=== PATIENT | male | born 1965 | race Two or more races ===

== ENCOUNTER 2025-01-08 21:30 | Inpatient (IN) | payer MEDICAID, OTHER ==
[~2025-01-08] VITALS: Ht 172.7 cm; Wt 61.7 kg
--- NOTE | 2025-01-08 21:58 | ED.PDOC ---
Altered Mental Status HPI Comments 61-year-old male who came to ER via EMS for overdose/altered level of consciousness. Per EMS, patient was seen lying unresponsive beside a dumpster. Noted pinpoint pupils, shallow breathing. Patient was given a total of 8 mg of Narcan (6 mg intranasal, 2mg IV) which finally woke up the patient. Patient is still acting confused and disoriented at this time. Reports of nausea and vomiting. Patient appears homeless. Chief Complaint: Overdose Time Seen by MD: 21:55 Reviewed Notes: [employer] Teacher Notes Allergies: Coded Allergies: UNOBTAINABLE (Unverified , 01/08/25) Information Source: Emergency Med Personnel Mode of Arrival: EMS Severity: Unable to Care for Self Timing: Minutes Duration: Since onset Prehospital treatment: None Quality: Decreased Alertness, Change in Behavior, Confusion Recent: Medication/Drug Abuse Review of Systems REVIEW OF SYSTEMS: (+) Altered level of consciousness No fever, no chills, or fatigue HEENT: No sore throat, no earache, no congestion, no neck pain. Cardiac: No chest pain. No palpitations. Lungs: No shortness of breath, no cough. GI: No nausea, no vomiting, no diarrhea, no constipation, no abdominal pain : No dysuria, frequency, or urgency. No hematuria. Musculoskeletal: No joint pain , no joint swelling, no extremity edema. Skin: No rash, no itching. Neuro: No headache, no dizziness, no weakness Vital Signs Vital Signs Date Time Temp Pulse Resp B/P (MAP) Pulse Ox O2 Delivery O2 Flow Rate FiO2 01/08/25 21:30 98.3 120 22 135/88 (104) 94 98.3 Physical Exam General: Awake, alert and oriented. No acute distress. Skin: Skin in warm, dry and intact without rashes or lesions. HEENT: The head is normocephalic and atraumatic. Conjunctivae are clear without exudates or hemorrhage. Sclera is non-icteric. Vomitus material around mouth Neck: Normal range of motion. No JVD. Cardiac: Regular rate Respiratory: No signs of respiratory distress. No Stridor. Extremities: Upper and lower extremities are atraumatic in appearance without deformity. Neurological: The patient is awake, alert and oriented to person, Speech is slurred . There is no facial asymmetry. Past Medical History PAST MEDICAL HISTORY: Pt Confused Surgical History: Pt Confused Family History Family History: Pt Confused Social History Smoker: Pt Confused Alcohol: Pt Confused Drugs: Pt Confused Lives In: Pt Confused EKG EKG : Comments Sinus rhythm at a rate of 108. No STEMI. Was a procedure done? Was a procedure done?: No Differential Diagnosis (ALOC) Differential Diagnosis: Dehydration, Hypoglycemia, Encephalopathy, Hypoxemia, Drug Overdose, ETOH Intoxication, Heart Failure (Aspiration, other), Other X-Ray, Labs, Meds, VS Vital Signs Date Time Temp Pulse Resp B/P (MAP) Pulse Ox O2 Delivery O2 Flow Rate FiO2 01/08/25 21:30 98.3 120 22 135/88 (104) 94 98.3 Lab Test 01/08/25 22:02 Range/Units White Blood Count 6.6 4.4-10.8 10^3/uL Red Blood Count 4.52 4.5-5.90 10^6/uL Hemoglobin 14.2 13.5-17.5 g/dL Hematocrit 42.0 41.0-53.0 % Mean Corpuscular Volume 92.9 80.0-100.0 fL Mean Corpuscular Hemoglobin 31.5 28.0-32.0 pg Mean Corpuscular Hemoglobin Concent 33.9 32.0-36.0 g/dL Red Cell Distribution Width 15.4 H 11.8-14.3 % Platelet Count 332 140-450 10^3/uL Mean Platelet Volume 9.2 6.9-10.8 fL Neutrophils (%) (Auto) 60.4 37.0-80.0 % Lymphocytes (%) (Auto) 30.4 10.0-50.0 % Monocytes (%) (Auto) 7.2 0.0-12.0 % Eosinophils (%) (Auto) 1.5 0.0-7.0 % Basophils (%) (Auto) 0.5 0.0-2.0 % Neutrophils # (Auto) 4.0 1.6-8.6 10 ^3/uL Lymphocytes # (Auto) 2.0 0.4-5.4 10 ^3/uL Monocytes # (Auto) 0.5 0-1.3 10 ^3/uL Eosinophils # (Auto) 0.1 0-0.8 10 ^3/uL Basophils # (Auto) 0 0-0.2 10 ^3/uL Nucleated Red Blood Cells 0.1 % Sodium Level 144 136-145 mmol/L Potassium Level 2.2 *L 3.5-5.1 mmol/L Chloride Level 106 98-107 mmol/L Carbon Dioxide Level 22 20-31 mmol/L Anion Gap 16 H 5-15 Blood Urea Nitrogen 12 9-23 mg/dL Creatinine 1.04 0.700-1.30 mg/dL Glomerular Filtration Rate Calc 83 >90 mL/min BUN/Creatinine Ratio 11.5 10.0-20.0 Serum Glucose 125 H 74-106 mg/dL Calcium Level 9.8 8.7-10.4 mg/dL Troponin I High Sensitivity 5 </=54 ng/L Images Reviewed?: Images reviewed and evaluated by me (Independent interpretation of chest x-ray: No acute disease) Time of 1ST Reevaluation: 21:51 Reevaluation 1ST: Unchanged Patient Education/Counseling: Need For Follow Up Family Education/Counseling: Need For Follow Up Departure 1 Departure Time of Disposition: 01:25 Impression: Primary Impression: Drug overdose Additional Impression: Hypokalemia Disposition: ADMITTED INPATIENT Condition: Stable Comments Extensive evaluation was performed in attempt to identify or rule out: (See differential diagnosis section) The following tests were ordered, and results were reviewed by me and discussed with patient: (See diagnostic results section) The following test were independently interpreted by me: EKG, chest x-ray I reviewed and agreed with the following test results read by other providers: Chest x-ray I reviewed the following notes from the pt's past medical encounters: N/A Additional information was gathered from interviewing the following independent historians: EMS personnel Discussion of management or test interpretation with external physician/other qualified health child care attendant: N/A Addressed an acute or chronic illness that poses a threat to life or bodily function: Hypokalemia, opiate overdose Decision regarding hospitalization or escalation of hospital level of care: Risk and benefits of admission for further treatment of patient's condition was considered. Due to patient's current clinical condition, high risk of decline and poor outcome if discharged and need for further inpatient management and monitoring, patient will be admitted to the hospital. Discussed with patient. Drug therapy requiring intensive monitoring for toxicity: IV potassium Parenteral controlled substances: N/A Decision regarding elective major surgery with identified patient or procedure risk factors: N/A Decision regarding emergency major surgery: N/A Decision not to resuscitate or to de-escalate care because of poor prognosis: N/A Diagnosis or treatment significantly limited by social determinants of health: N/A Critical Care Note Critical Care Time?: No Stability Stability form required: No Heart Score Heart Score: Heart Score Response (Comments) Value History N/A 0 EKG N/A 0 Age N/A 0 Risk Factors N/A 0 Troponin N/A 0 Total 0 I personally scribed for SLIME BEDOYA MD ([email or web address]) on 01/08/25 at 21:58. Electronically submitted by Kelvin Rodríguez ([facility]). SLIME BEDOYA MD January 08, 2025 21:58
[2025-01-08 22:18] LABS: Basophils # (auto) 0 10 ^3/uL (0-0.2); Basophils % (auto) 0.5 % (0.0-2.0); Eosinophils # (auto) 0.1 10 ^3/uL (0-0.8); Eosinophils % (auto) 1.5 % (0.0-7.0); Hemoglobin 14.2 g/dL (13.5-17.5); Lymphocytes % (auto) 30.4 % (10.0-50.0); Mean Corpuscular Hemoglobin 31.5 pg (28.0-32.0); Mean Corpuscular Hgb Conc. 33.9 g/dL (32.0-36.0); Mean Corpuscular Volume 92.9 fL (80.0-100.0); Monocytes # (auto) 0.5 10 ^3/uL (0-1.3); Monocytes % (auto) 7.2 % (0.0-12.0); Neutrophils % (auto) 60.4 % (37.0-80.0); Nucleated Red Blood Cells % 0.1 %; Platelet Count (auto) 332 10^3/uL (140-450); Red Blood Cells 4.52 10^6/uL (4.5-5.90); Red Cell Distribution Width 15.4 % (11.8-14.3); White Blood Cell 6.6 10^3/uL (4.4-10.8)
[2025-01-08 22:36] LABS: Chloride 106 mmol/L (98-107); Sodium 144 mmol/L (136-145)
[2025-01-08 22:37] LABS: Anion Gap 16 (5-15); Carbon Dioxide 22 mmol/L (20-31)
[2025-01-08 22:38] LABS: Calcium 9.8 mg/dL (8.7-10.4)
[2025-01-08 22:42] LABS: BUN/Creatinine Ratio 11.5 (10.0-20.0); Blood Urea Nitrogen 12 mg/dL (9-23)
[2025-01-08 23:10] LABS: Glucose 125 mg/dL (74-106)
[2025-01-08 23:11] LABS: Potassium 2.2 mmol/L (3.5-5.1)
--- NOTE | 2025-01-08 23:13 | DVH ---
CHEST RADIOGRAPH Indication: Overdose Technique: Single frontal view of the chest was obtained COMPARISON: None FINDINGS: Lines and Tubes: None Lungs: Clear Pleura: No effusion. No pneumothorax. Cardiomediastinal contours: Unremarkable IMPRESSION: No abnormality demonstrated.
[2025-01-09] VITALS (8 sets, daily range): BP systolic 143–152; BP diastolic 95–100; PULSE 85–97; RESP 13–20; TEMP 97.5–98; O2SAT 92–100
[2025-01-09] MEDS: PANTOPRAZOLE 40 MG/10 ML VIAL INJ IV ONE (01:19)
[2025-01-09] MEDS: METOCLOPRAMIDE HCL 5MG/ml INJ 2ml VIAL IV ONE (01:19)
[2025-01-09] MEDS: SODIUM CHLORIDE 0.9% 1,000 ML IV ONE (01:20)
[2025-01-09] MEDS: POTASSIUM CHL 20MEQ/50ML 50 ML IV SCH (01:20)
[2025-01-09] MEDS ORDERED: KETOROLAC TROMETH 30 MG/ML 1ML VIAL IV PRN (01:30)
[2025-01-09] MEDS ORDERED: ACETAMINOPHEN 325 MG TAB PO PRN (01:30)
[2025-01-09] MEDS: THIAMINE 100mg/ml INJ (200mg/2ml VIAL) IV ONE (02:19)
[2025-01-09] MEDS: D5W/SOD CHL 0.9%/KCL 40MEQ 1,000 ML IV SCH (05:13)
[2025-01-09 05:24] LABS: Basophils # (auto) 0 10 ^3/uL (0-0.2); Basophils % (auto) 0.5 % (0.0-2.0); Eosinophils # (auto) 0.1 10 ^3/uL (0-0.8); Eosinophils % (auto) 0.8 % (0.0-7.0); Hematocrit 40.2 % (41.0-53.0); Hemoglobin 13.8 g/dL (13.5-17.5); Lymphocytes # (auto) 1.5 10 ^3/uL (0.4-5.4); Lymphocytes % (auto) 20.4 % (10.0-50.0); Mean Corpuscular Hemoglobin 31.6 pg (28.0-32.0); Mean Corpuscular Hgb Conc. 34.2 g/dL (32.0-36.0); Mean Corpuscular Volume 92.4 fL (80.0-100.0); Monocytes # (auto) 0.8 10 ^3/uL (0-1.3); Monocytes % (auto) 10.4 % (0.0-12.0); Neutrophils % (auto) 67.9 % (37.0-80.0); Nucleated Red Blood Cells % 0.1 %; Platelet Count (auto) 310 10^3/uL (140-450); Red Blood Cells 4.35 10^6/uL (4.5-5.90); Red Cell Distribution Width 14.9 % (11.8-14.3); White Blood Cell 7.4 10^3/uL (4.4-10.8)
[2025-01-09] MEDS: MAGNESIUM SULFATE 1GM/100ML 100 ML IV ONE (05:29)
--- NOTE | 2025-01-09 05:34 | DVHHP2 ---
History of Present Illness Reason for Visit: acute toxic encepahlopathy History of Present Illness Patient intoxicated at the time of examination, info obtained from the EMR: 61-year-old male brought to the ED by EMS after being found unresponsive beside a dumpster. EMS reports shallow breathing and pinpoint pupils on arrival. Patient received 8 mg of Narcan (6 mg intranasal, 2 mg IV) en route with partial response. On arrival, patient remained disoriented and confused. There were reports of nausea and vomiting; vomitus noted around the mouth on exam. The patient appears homeless. Further history limited due to mental status. PMH/PSH: Unknown Allergies: UNOBTAINABLE Medications: Unknown Substance Use: Suspected opioid use, alcohol intoxication Social History: Appears to be homeless Review of Systems Review of Systems unable to obtain Allergies: Coded Allergies: UNOBTAINABLE (Unverified , 01/08/25) Medications Current Medications Medications Dose Ordered Sig/Sheldon Route Start Time Stop Time Status Last Admin Dose Admin Acetaminophen 650 mg Q6HP PRN PO 01/09/25 01:30 Enoxaparin Sodium 40 mg DAILY SC 01/09/25 10:00 Ketorolac Tromethamine 15 mg Q6HPRN PRN IV 01/09/25 01:30 01/14/25 01:29 Pantoprazole Sodium 40 mg DAILY IV 01/09/25 10:00 Potassium Chloride/Dextrose/ Sod Cl 1,000 ml @ 75 mls/hr [id number] IV 01/09/25 01:30 01/09/25 05:13 75 MLS/HR Exam Vital Signs Vital Signs Date Time Temp Pulse Resp B/P (MAP) Pulse Ox O2 Delivery O2 Flow Rate FiO2 01/09/25 04:00 98 01/09/25 02:55 13 92 Room Air* 0 21 01/09/25 01:30 97.4 129/90 (103) 97.4 Exam General: Drowsy No acute distress. Skin: Warm, dry, intact. No rashes or lesions. HEENT: Normocephalic, atraumatic. Conjunctivae clear. Sclera anicteric. Vomitus noted around mouth. Neck: Supple, no JVD, no lymphadenopathy. CV: Regular rate and rhythm. Pulm: No respiratory distress, no stridor. Abdomen: Soft, nontender. Neuro: GCS estimated 13 (E4 V4 M5). Psych: Appears disheveled. Labs/Xrays Labs Test 01/09/25 05:07 01/08/25 22:02 Range/Units White Blood Count 7.4 4.4-10.8 10^3/uL Red Blood Count 4.35 L 4.5-5.90 10^6/uL Hemoglobin 13.8 13.5-17.5 g/dL Hematocrit 40.2 L 41.0-53.0 % Mean Corpuscular Volume 92.4 80.0-100.0 fL Mean Corpuscular Hemoglobin 31.6 28.0-32.0 pg Mean Corpuscular Hemoglobin Concent 34.2 32.0-36.0 g/dL Red Cell Distribution Width 14.9 H 11.8-14.3 % Platelet Count 310 140-450 10^3/uL Mean Platelet Volume 9.0 6.9-10.8 fL Neutrophils (%) (Auto) 67.9 37.0-80.0 % Lymphocytes (%) (Auto) 20.4 10.0-50.0 % Monocytes (%) (Auto) 10.4 0.0-12.0 % Eosinophils (%) (Auto) 0.8 0.0-7.0 % Basophils (%) (Auto) 0.5 0.0-2.0 % Neutrophils # (Auto) 5.0 1.6-8.6 10 ^3/uL Lymphocytes # (Auto) 1.5 0.4-5.4 10 ^3/uL Monocytes # (Auto) 0.8 0-1.3 10 ^3/uL Eosinophils # (Auto) 0.1 0-0.8 10 ^3/uL Basophils # (Auto) 0 0-0.2 10 ^3/uL Nucleated Red Blood Cells 0.1 % Magnesium Level 1.7 1.6-2.6 mg/dL Troponin I High Sensitivity 5 </=54 ng/L Assessment/Plan Assessment/Plan #Acute toxic encephalopathy due to alcohol intoxication #Possible opioid overdose #Hypokalemia #Hypomagnesemia Admit Telemetry NPO Aspiration precautions D5W+NS+K+: 75CC/H Further history should be obtain when the patient is more awake Case discussed with Dr Mitchell Full code Plan discussed with: Patient, Other (rn) My Orders Orders - LANA BUITRAGO RESIDENT Procedure Category Date Status Time Admit ADMIT 01/09/25 Transmitted 01:24 Code Status CODE 01/09/25 Transmitted 01:24 Vital Signs NURA 01/09/25 In Process 01:24 Review Orders With NURA 01/09/25 In Process Adm. 01:24 Npo (Nothing By DIET 01/09/25 Transmitted Mouth) Diet Breakfast Acetaminophen Tablet PHA 01/09/25 In Process (Tylenol Tablet) 01:30 Notify Md Of Changes NURA 01/09/25 In Process From Base 01:24 Advance Directive NURA 01/09/25 In Process 01:24 Patient Condition ORDERS 01/09/25 Transmitted 01:24 Allergies NURA 01/09/25 In Process 01:24 Enoxaparin Sodium PHA 01/09/25 In Process (Lovenox) 10:00 Ketorolac Injection PHA 01/09/25 In Process (Toradol Injection) 01:30 Pantoprazole PHA 01/09/25 In Process (Protonix) 10:00 D5w/Sod Chl 0.9%/Kcl PHA 01/09/25 In Process 40meq 01:30 Strict Aspiration NURA 01/09/25 In Process Precautions 01:28 Comprehensive LAB 01/09/25 In Process Metabolic Panel 02:54 Thyroid Stimulating LAB 01/09/25 In Process Hormone 02:54 Hemoglobin A1c LAB 01/09/25 In Process 02:54 Blood Alcohol LAB 01/09/25 Logged 05:30 Date of Service: January 09, 2025 Billing Provider: JAELYN MITCHELL MD Common Visit Codes: 13601-YOHPPPM INP/OBS CARE (HIGH) LANA BUITRAGO RESIDENT January 09, 2025 05:34
[2025-01-09 05:48] LABS: Alanine Aminotransferase 37 U/L (7-40); Alkaline Phosphatase 86 U/L (46-116); Anion Gap 11 (5-15); BUN/Creatinine Ratio 17.4 (10.0-20.0); Bilirubin, Total 0.4 mg/dL (0.2-1.0); Blood Urea Nitrogen 12 mg/dL (9-23); Carbon Dioxide 28 mmol/L (20-31); Total Protein 6.3 g/dL (5.7-8.2)
[2025-01-09 05:51] LABS: Aspartate Aminotransferase 83 U/L (13-40); Calcium 8.2 mg/dL (8.7-10.4); Chloride 107 mmol/L (98-107); Glucose 108 mg/dL (74-106); Sodium 146 mmol/L (136-145)
[2025-01-09 08:46] LABS: Free T3 3.94 pg/mL (2.3-4.2); Free T4 (Free Thyroxine) 1.22 ng/dL (0.89-1.76)
[2025-01-09] MEDS: PANTOPRAZOLE 40 MG/10 ML VIAL INJ IV SCH (09:48)
[2025-01-09 09:49] LABS: Urine Bacteria None Seen /hpf (None Seen)
[2025-01-09] MEDS: ENOXAPARIN SOD 40 MG/0.4 ML SYRINGE SC SCH (09:49)
[2025-01-09 09:58] LABS: Urine Blood Negative /uL (Negative); Urine Clarity Clear (Clear); Urine Color Yellow (Yellow); Urine Hyaline Cast FEW /lpf (0 - 2); Urine Mucus FEW (None Seen); Urine Protein, UAD 1+ (Negative); Urine Specific Gravity 1.026 (1.001-1.035); Urine Sperm PRESENT /hpf (None Seen); Urine Squamous Epithelial Cell FEW /hpf (<5); Urine Urobilinogen 6 mg/dL (Negative); Urine WBC 6 /HPF (0-3)
[2025-01-09 10:06] LABS: Cannabinoid Screen, Urine Pos (NEGATIVE)
[2025-01-09 10:07] LABS: Amphetamine Screen, Urine Pos (NEGATIVE); Barbiturate Scree,Urine Neg (NEGATIVE); Benzodiazephine Screen, Urine Neg (NEGATIVE); Cocaine Screen, Urine Neg (NEGATIVE); Opiate Scree,Urine Neg (NEGATIVE); Phencyclidine Screen, Urine Neg (NEGATIVE)
[2025-01-10 01:00] VITALS: BP 151/98; PULSE 96; RESP 20; TEMP 98; O2SAT 100
[2025-01-10 05:00] VITALS: BP 147/100; PULSE 99; RESP 20; TEMP 97.1; O2SAT 97
--- NOTE | 2025-01-10 12:58 | DVHDS2 ---
Discharge Summary Date of Admission January 09, 2025 at 01:24 Labs/Diagnostic Data: Laboratory Results Test 01/09/25 07:40 01/09/25 05:07 01/08/25 22:02 Urine Color Yellow (Yellow) Urine Clarity Clear (Clear) Urine pH 6.0 (5.0-9.0) Urine Specific Roby 1.026 (1.001-1.035) Urine Protein 1+ (Negative) Urine Ketones Negative (Negative) Urine Blood Negative /uL (Negative) Urine Nitrite Negative (Negative) Urine Bilirubin Negative (Negative) Urine Urobilinogen 6 mg/dL (Negative) Urine Leukocyte Esterase Negative /uL (Negative) Urine RBC 2 /hpf (0 - 3) Urine Microscopic WBC 6 /HPF (0-3) Urine Squamous Epithelial Cells Few /hpf (<5) Urine Calcium Oxalate Crystals Few (None Seen) Urine Bacteria None seen /hpf (None Seen) Urine Hyaline Casts Few /lpf (0 - 2) Urine Mucus Few (None Seen) Urine Sperm Present /hpf (None Seen) Urine Glucose Normal mg/dL (Normal) Urine Opiates Screen Neg (NEGATIVE) Urine Fentanyl Screen Pos (NEGATIVE) Urine Barbiturates Screen Neg (NEGATIVE) Urine Phencyclidine Screen Neg (NEGATIVE) Urine Amphetamines Screen Pos (NEGATIVE) Urine Benzodiazepines Screen Neg (NEGATIVE) Urine Cocaine Screen Neg (NEGATIVE) Urine Cannabinoids Screen Pos (NEGATIVE) White Blood Count 7.4 10^3/uL (4.4-10.8) Red Blood Count 4.35 10^6/uL (4.5-5.90) Hemoglobin 13.8 g/dL (13.5-17.5) Hematocrit 40.2 % (41.0-53.0) Mean Corpuscular Volume 92.4 fL (80.0-100.0) Mean Corpuscular Hemoglobin 31.6 pg (28.0-32.0) Mean Corpuscular Hemoglobin Concent 34.2 g/dL (32.0-36.0) Red Cell Distribution Width 14.9 % (11.8-14.3) Platelet Count 310 10^3/uL (140-450) Mean Platelet Volume 9.0 fL (6.9-10.8) Neutrophils (%) (Auto) 67.9 % (37.0-80.0) Lymphocytes (%) (Auto) 20.4 % (10.0-50.0) Monocytes (%) (Auto) 10.4 % (0.0-12.0) Eosinophils (%) (Auto) 0.8 % (0.0-7.0) Basophils (%) (Auto) 0.5 % (0.0-2.0) Neutrophils # (Auto) 5.0 10 ^3/uL (1.6-8.6) Lymphocytes # (Auto) 1.5 10 ^3/uL (0.4-5.4) Monocytes # (Auto) 0.8 10 ^3/uL (0-1.3) Eosinophils # (Auto) 0.1 10 ^3/uL (0-0.8) Basophils # (Auto) 0 10 ^3/uL (0-0.2) Nucleated Red Blood Cells 0.1 % Sodium Level 146 mmol/L (136-145) Potassium Level 3.0 mmol/L (3.5-5.1) Chloride Level 107 mmol/L (98-107) Carbon Dioxide Level 28 mmol/L (20-31) Anion Gap 11 (5-15) Blood Urea Nitrogen 12 mg/dL (9-23) Creatinine 0.69 mg/dL (0.700-1.30) Glomerular Filtration Rate Calc 108 mL/min (>90) BUN/Creatinine Ratio 17.4 (10.0-20.0) Serum Glucose 108 mg/dL (74-106) Hemoglobin A1c 4.8 % A1C (<5.7) Calcium Level 8.2 mg/dL (8.7-10.4) Total Bilirubin 0.4 mg/dL (0.2-1.0) Aspartate Amino Transferase (AST) 83 U/L (13-40) Alanine Aminotransferase (ALT) 37 U/L (7-40) Alkaline Phosphatase 86 U/L (46-116) Total Protein 6.3 g/dL (5.7-8.2) Albumin 4.0 g/dL (3.2-4.8) Thyroid Stimulating Hormone (TSH) 0.28 uIU/mL (0.55-4.78) Free Thyroxine (T4) Calculated 1.22 ng/dL (0.89-1.76) Free Triiodothyronine (T3) pg/mL 3.94 pg/mL (2.3-4.2) Plasma/Serum Blood Alcohol 69.5 mg/dL (<10) Magnesium Level 1.7 mg/dL (1.6-2.6) Troponin I High Sensitivity 5 ng/L (</=54) Other Laboratory Tests 01/09/25 05:07 Discharge Statement: "Patient was advised to return to the ER or call 911 if any headaches, dizziness, shortness of breath, chest pain, abdominal pain, bleeding, fevers, or worsening of medical condition. Patient was counseled about treatment plan, medications, possible side effects, patientverbalized understanding. All questions were answered to the best of my ability. This discharge took greater then 30 minutes in planning, reviewing documentation, counseling the patient, and discussing with other team members." ASSESSMENT ASSESSMENT Assessment GEORGE SILVA MD January 10, 2025 12:58
--- NOTE | 2025-01-11 13:08 | ECG ---
[facility] Test Date: 2025-01-08 Test Time: 22:01:11 Pat Name: ALTAGRACIA REYNOSO Department: ED Room: 0291T Gender: M [employer]: : 1965 Requested By: SLIME BEDOYA Order Number: [id number] Reading MD: Measurements Intervals [place] Rate: 108 P: 54 TN: 163 QRS: 35 QRSD: 93 T: 34 QT: 349 QTc: 468 Interpretive Statements Sinus tachycardia Borderline repolarization abnormality Please click the below link to view image of tracing.
== END 2025-01-10 08:05 | disposition left against medical advice (07) | DRG 816 ==
LOC: EDBD 21:30 → ER 21:30 → OVERFLOW 01-09 01:24 → EDBD 01-09 01:24 → TELE-WESTW 01-09 10:58
PROVIDERS: ADMIT Internal Medicine; ATTEND Internal Medicine
DX: T51.0X1A Toxic effect of ethanol, accidental (unintentional), initial encounter (principal); G92.8 Other toxic encephalopathy; T40.2X1A Poisoning by other opioids, accidental (unintentional), initial encounter; E83.42 Hypomagnesemia; Z53.29 Procedure and treatment not carried out because of patient's decision for other reasons; F10.129 Alcohol abuse with intoxication, unspecified; E87.6 Hypokalemia; Z59.00 Homelessness unspecified; Z79.899 Other long term (current) drug therapy; Y92.89 Other specified places as the place of occurrence of the external cause; Y90.3 Blood alcohol level of 60-79 mg/100 ml
CPT/HCPCS: 36415; 71045; 80048; 80053; 80307; 80320; 81001; 83036; 83735; 84439; 84443; 84481; 84484; 85025; 96361; 96374; 96375; G0378; J2470